=== PATIENT | male | born 1995 | race African-American/Black ===

== ENCOUNTER 2025-05-11 07:43 | Emergency (ER) | payer OTHER, SELFPAY ==
[2025-05-11 07:54] VITALS: BP 165/104; PULSE 89; TEMP 37.2; BMI 35.2
--- NOTE | 2025-05-11 08:06 | XR_ITS ---
The [place] [id number] Patient Name: KAMERON ALANIZ MRN: [id number] date: 1995 Sex: M Assigned Patient Location: ER Current Patient Location: ED.MAIN Accession/Order Number: [id number] Exam Date: 05/11/2025 08:20 Report Date: 05/11/2025 09:23 At the request of: THANIA SCOTT MD Procedure: XR foot LT min 3V LEFT FOOT - 3 views COMPARISON: None CLINICAL DATA: Patient dropped steel onto left foot and has pain, predominantly at the second metatarsal. AP, lateral and oblique views were obtained. There is no evidence of fracture or dislocation. A tiny enthesophyte is present at the insertion of the Achilles tendon. There are no significant soft tissue abnormalities. XR/XR foot LT min 3V IMPRESSION: NO ACUTE BONY INJURY. Impression dictated by: Maryanne Mead M.D. 05/11/2025 9:23 AM Dictation Location: [place] [address] Electronically authenticated by: [id number] Y Date: 05/11/2025 09:23
[2025-05-11] MEDS: NAPROXEN 250 MG TABLET 500 MG PO (08:16)
--- NOTE | 2025-05-11 08:55 | ED_ITS ---
HPI HPI - Extremity Injury (Lower) General Chief Complaint: Extremity Injury, Lower Stated Complaint: BWC; L FOOT PAIN Time Seen by Provider: 05/11/25 08:02 Source: patient Mode of arrival: Wheelchair Limitations: no limitations History of Present Illness HPI Narrative: The patient is a 29 years old male is coming to the ER after he had a work injury, was wearing his working boots but apparently had a 50 pound metal fell on his left foot he mentioned that it fell on the proximal aspect of his foot and he was having a lot of pain that caused him to be walking on the heel avoiding the tip of the toes while walking to the ER The patient denies any other injuries Related Data Previous Rx's ?Medication ?Instructions ?Recorded naproxen 375 mg tablet 375 mg PO BID PRN pain #20 t abs 05/11/25 Allergies Allergy/AdvReac Type Severity Reaction Status Date / Time No Known Drug Allergies Allergy Verified 05/11/25 07:54 Opioid HPI Opioid Management Most Recent Pain and Opioid Data: Last Pain Scale 7 Today, 07:59 Review of Systems ROS Status of ROS 10 or more systems reviewed and unremark able except as noted in history and below PFSH PFSH Social History Little interest or pleasure in doing things: not at all Feeling down, depressed, or hopeless: not at all Exam Narrative Exam Narrative: Nurses notes and vital signs reviewed and patient is not hypoxic. General: Well-appearing and in no apparent distress. Skin: Warm, dry, no pallor noted. No rash. Head: Normocephalic, atraumatic. Neck: Supple, non-tender. Left lower extremity exam: The patient had a normal vascular exam with anterior tibial pulse that is normal and there is no vascular injury detected within normal capillary refill There is tenderness upon palpation of the medial aspect of the first metatarsal bone there is some mild edema to at the distal end there is no deformity and the patient have full range of movement Neurological: A&O x4. No cranial nerve dysfunction observed. No truncal ataxia. Moves all extremities. Sensation intact. Psychiatric: Cooperative and interactive. Normal mood and affect. Constitutional Vital Signs, click to edit/add: Last Vital Signs Temp 99 F 05/11/25 07:54 Pulse 89 05/11/25 07:54 Resp 20 05/11/25 07:54 BP 165/104 H 05/11/25 07:54 Course Vital Signs Vital signs: Vital Signs Temperature 99 F 05/11/25 07:54 Pulse Rate 89 05/11/25 07:54 Respiratory Rate 20 05/11/25 07:54 Blood Pressure 165/104 H 05/11/25 07:54 Temperature 99 F 05/11/25 07:54 Pulse Rate 89 05/11/25 07:54 Respiratory Rate 20 05/11/25 07:54 Blood Pressure 165/104 H 05/11/25 07:54 MDM - Extremity Injury (Lower) MDM Narrative Medical decision making narrative: Ice applied on arrival as well as naproxen for pain The patient had an x-ray showing no acute pathology but right now due to the pain and the fact that the patient not able to put weight on his left foot the patient was provided with a walking boot Instruction to rest elevate and ice for the next 24 hours the patient can continue to work tomorrow with the walking boot but he have to follow-up with podiatry as outpatient The patient to follow-up with the primary care within 2 to 3 days and to come back to the ER in case of any worsening of the current symptoms or any new symptoms or concerns Discharge Plan Discharge Chief Complaint: Extremity Injury, Lower Clinical Impression: Contusion of foot Patient Disposition: Home, Self-Care Time of Disposition Decision: 09:45 Condition: Good Prescriptions / Home Meds: New naproxen 375 mg tablet 375 mg PO BID PRN (Reason: pain) Qty: 20 0RF Print Language: Ukrainian Instructions: Foot Contusion (ED) Referrals: Physician,Non-Staff, MD [Primary Care Provider] - 1 week Tuan Garcia DPM [Physician, Podiatry] - 1 week
== END 2025-05-11 10:09 | disposition home or self-care (01) ==
PROVIDERS: Emergency Provider Emergency Medicine
DX: S90.32XA Contusion of left foot, initial encounter (principal); W20.8XXA Other cause of strike by thrown, projected or falling object, initial encounter
CPT/HCPCS: 73630; 99283

== ENCOUNTER 2025-06-25 06:38 | Emergency (ER) | payer OTHER, SELFPAY ==
[2025-06-25] VITALS (43 sets, daily range): BP systolic 155–193; BP diastolic 84–122; PULSE 70–95; TEMP 36.8–37; O2SAT 95–100; BMI 35.9
--- NOTE | 2025-06-25 06:47 | XR_ITS ---
The [address] [address] Patient Name: KAMERON ALANIZ MRN: [id number] date: 1995 Sex: M Assigned Patient Location: ER Current Patient Location: ER Accession/Order Number: [id number] Exam Date: 06/25/2025 06:47 Report Date: 06/25/2025 07:53 At the request of: AUSTEN ROTHMAN DO Procedure: XR shoulder RT min 2V XR shoulder RT min 2V 06/25/2025 6:55 AM SIGNS AND SYMPTOMS: ^r/o dislocation PROTOCOL: Frontal and scapular Y views of the right shoulder COMPARISON: None FINDINGS: There is anterior and inferior dislocation of the humeral head in respect to the glenoid. Cortical lucency is noted along the superior and lateral aspect humeral head possibly representing a Hill-Sachs fracture. The acromioclavicular joint is intact. The visualized right hemithorax is grossly intact. XR/XR shoulder RT min 2V IMPRESSION: There is anterior and inferior dislocation of the humeral head in respect to the glenoid. Cortical lucency is noted along the superior and lateral aspect humeral head possibly representing a Hill-Sachs fracture. Impression dictated by: Grant Don M.D. 06/25/2025 7:53 AM Dictation Location: [place] [address] Electronically authenticated by: [id number] Y Date: 06/25/2025 07:53
--- NOTE | 2025-06-25 07:14 | XR_ITS ---
[address] [address] Patient Name: KAMERON ALANIZ MRN: [id number] date: 1995 Sex: M Assigned Patient Location: ER Current Patient Location: ED.MAIN Accession/Order Number: [id number] Exam Date: 06/25/2025 08:02 Report Date: 06/25/2025 08:47 At the request of: SHERIN ANDERSON MD Procedure: XR shoulder RT 1V XR shoulder RT 1V 06/25/2025 8:10 AM SIGNS AND SYMPTOMS: ^post reduction PROTOCOL: Frontal radiograph of the right shoulder COMPARISON: Radiograph from earlier on the same date FINDINGS: There is satisfactory reduction of previous anterior inferior dislocation of the right humeral head in respect to the glenoid. The acromioclavicular joint and glenohumeral joint are intact. Previous suspected Hill-Sachs fracture is not well visualized. The visualized right hemithorax is grossly intact. XR/XR shoulder RT 1V IMPRESSION: There is satisfactory reduction of previous anterior inferior dislocation of the right humeral head in respect to the glenoid. Previous suspected Hill-Sachs fracture is not well visualized. Impression dictated by: Grant Don M.D. 06/25/2025 8:47 AM [facility]ation [facility] by: [id number] Y Date: 06/25/2025 08:47
[2025-06-25] MEDS: ETOMIDATE 20 MG/10 ML VIAL IVP (07:30)
--- NOTE | 2025-06-25 08:13 | ED_ITS ---
HPI HPI - General Adult General Chief complaint: Extremity Injury, Upper Stated complaint: FALL Time Seen by Provider: 06/25/25 06:47 Source: patient Mode of arrival: ambulance Limitations: no limitations History of Present Illness HPI narrative: 30-year-old male presents for right shoulder pain. He fell when he was getting out of his truck and going into his workplace. He believes the shoulder is dislocated, it happened once previously. He did not hit his head. No loss of consciousness and no other injury. The pain is much worse if he tries to move the shoulder. This happened about an hour before coming into the emergency department. Related Data Home Medications ?Medication ?Instructions ?Recorded ?Confirmed lisinopril 10 mg tablet mg 06/25/25 metformin 500 mg tablet mg 06/25/25 Previous Rx's ?Medication ?Instructions ?Recorded naproxen 375 mg tablet 375 mg PO BID PRN pain #20 t abs 05/11/25 acetaminophen 300 mg-codeine 30 mg 1 tab PO Q6H PRN pa in 5 days #20 06/25/25 tablet tabs Allergies Allergy/AdvReac Type Severity Reaction Status Date / Time No Known Drug Allergies Allergy Verified 06/25/25 06:42 Opioid HPI Opioid Management Most Recent Opioid Data: Last Pain Scale 7 Today, 06:46 Review of Systems ROS Narrative A ten point review of systems is negative except as noted above. PFSH PFSH Social History Little interest or pleasure in doing things: not at all Feeling down, depressed, or hopeless: not at all Exam Narrative Exam Narrative: Nurses note and vital signs reviewed General:The patient appears uncomfortable and in no distress Skin:Warm, dry, no pallor noted.There is no rash noted. Head:Normocephalic, atraumatic Eye: Normal conjunctiva, no drainage Ears, Nose, Mouth, and Throat: oral mucosa is moist. Nares patent. Cardiovascular:Regular Rate and Rhythm Respiratory:Patient is in no distress, no accessory muscle use, lungs are clear to auscultation, no wheezing, rales or rhonchi Back:non-tender GI: Soft and nontender Musculoskeletal: Right arm has deformity at the right shoulder. Skin intact. Right elbow and wrist are nontender and have full range of motion. Radial pulse 2+. Sensation intact Neurological:A&O, normal speech Psychiatric:Cooperative Constitutional Vital Signs, click to edit/add: Last Vital Signs Temp 98.6 F 06/25/25 06:42 Pulse 82 06/25/25 08:25 Resp 20 06/25/25 07:30 BP 185/102 H 06/25/25 08:30 Pulse Ox 99 06/25/25 08:30 O2 Del Method Room Air 06/25/25 06:42 O2 Flow Rate 2 06/25/25 07:30 Course Vital Signs Vital signs: Vital Signs Temperature 98.6 F 06/25/25 06:42 Pulse Rate 83 06/25/25 06:42 Respiratory Rate 18 06/25/25 06:42 Blood Pressure 170/106 H 06/25/25 06:42 Pulse Oximetry 98 06/25/25 06:42 Oxygen Delivery Method Room Air 06/25/25 06:42 Temperature 98.6 F 06/25/25 06:42 Pulse Rate 82 06/25/25 08:25 Respiratory Rate 20 06/25/25 07:30 Blood Pressure 185/102 H 06/25/25 08:30 Pulse Oximetry 99 06/25/25 08:30 Oxygen Delivery Method Room Air 06/25/25 06:42 Oxygen Delivery Flow Rate 2 06/25/25 07:30 Medical Decision Making MDM Narrative Medical decision making narrative: The following procedure was performed by me. Initial doses of IV etomidate and Versed did not have the expected effect and it was discovered that the IV was not functioning appropriately. A new IV was placed. He was given 10 mg of IV etomidate which resulted in excellent sedation and the shoulder was reduced with external rotation method. No complications and he tolerated the procedure well. Subsequent physical exam shows him to be neurovascularly intact. Sling and swath applied, application checked by me and found to be appropriate, he is neurovascularly intact. Total sedation time was 10 minutes. He will follow-up with orthopedics. Treatment diagnosis and follow-up were discussed with the patient and his . Differential Diagnosis Differential Diagnosis: Dislocation, fracture, rotator cuff injury Imaging Data Right shoulder x-ray: My impression: Postreduction x-ray on my interpretation shows good reduction. Radiologist's impression: ITS Impressions Shoulder X-Ray 06/25/25 06:47 IMPRESSION: There is anterior and inferior dislocation of the humeral head in respect to the glenoid. Cortical lucency is noted along the superior and lateral aspect humeral head possibly representing a Hill-Sachs fracture. Impression dictated by: Grant Don M.D. 06/25/2025 7:53 AM Dictation Location: [place] [address] Electronically authenticated by: [id number] Y Date: 06/25/2025 07:53 Discharge Plan Discharge Chief Complaint: Extremity Injury, Upper Clinical Impression: Anterior dislocation of right shoulder, Hill Sachs deformity, right Patient Disposition: Home, Self-Care Time of Disposition Decision: 08:46 Condition: Good Mode of Transportation: Private Vehicle Prescriptions / Home Meds: New acetaminophen-codeine 300-30 mg tablet 1 tab PO Q6H PRN (Reason: pain) 5 Days Qty: 20 0RF No Action naproxen 375 mg tablet 375 mg PO BID PRN (Reason: pain) Qty: 20 0RF metformin 500 mg tablet lisinopril 10 mg tablet Print Language: Croatian Instructions: Shoulder Dislocation (ED), How to Use a Sling (ED) Additional Instructions: Call orthopedist today to make follow-up appointment. Wear sling until seen. Referrals: Jamal Castelan DO [Physician, Orthopedics] - As soon as possible Physician,Non-Staff, [Primary Care Provider] - 1 week
[2025-06-25] MEDS: MIDAZOLAM HCL 2 MG/2 ML VIAL 4 MG IV (08:48)
[2025-06-25] MEDS: ETOMIDATE 20 MG/10 ML VIAL 10 MG IVP (08:49)
== END 2025-06-25 12:13 | disposition home or self-care (01) ==
PROVIDERS: Emergency Provider Emergency Medicine
DX: S43.014A Anterior dislocation of right humerus, initial encounter (principal); S43.034A Inferior dislocation of right humerus, initial encounter; W00.0XXA Fall on same level due to ice and snow, initial encounter
CPT/HCPCS: 23650; 73020; 73030; 96374; 96375; 96376; 99152; 99285; J2250